=== PATIENT | female | born 1975 | race Caucasian/White ===

== ENCOUNTER → 2025-01-17 | Outpatient (CLI) | payer OTHER | LOC: M IRPRO 09:50 | PROVIDERS: ATTEND Internal Medicine Infectious Disease | DX: A69.20 Lyme disease, unspecified (principal) | CPT/HCPCS: 36569; C1751 ==

== ENCOUNTER → 2025-01-17 | Outpatient (CLI) | payer OTHER ==
[~2025-01-17] VITALS: Ht 160 cm; Wt 89.5 kg
[2025-01-17] MEDS: cefTRIAXone SOD 2 GM in DEXTROSE 5% (D5W) ADV/MINI-BAG 50 ML IV ONE (12:46)
== END ==
LOC: M INFU 12:23
PROVIDERS: ATTEND Internal Medicine Infectious Disease
DX: A69.20 Lyme disease, unspecified (principal)
CPT/HCPCS: 96365; J0696